=== PATIENT | female | born 1960 | race American Indian/Alaskan Native ===

== ENCOUNTER 2019-08-01 09:46 | Emergency (ER) | payer OTHER ==
--- NOTE | 2019-08-01 10:35 | Emergency Department Report ---
Chief Complaint: Urogenital-Female Stated Complaint: FREQUENT URINATION/POSS UTI Time Seen by Provider: 08/01/19 10:28 - HPI History of Present Illness: 59 y/o female comes in for urinary frequent no abd pain. No dysuria no fever. - ROS Review of Systems: urinary frequency no dysuria no abd pain. no fever - Exam Physical Exam: AxO times three NAD Ambulating normal MSE screening note: Focused history and physical exam performed. Due to findings the following was ordered: increase fluid follow up with her PCP ED Disposition for MSE Clinical Impression: Urinary frequency Disposition: Z- MED SCREENING EXAM-LEFT Is pt being admited?: No Does the pt Need Aspirin: No Condition: Stable Referrals: Primary, Care Provider [Other] - 3-5 Days
[2019-08-01 10:48] VITALS: BP 145/67
== END 2019-08-01 10:47 | disposition left against medical advice (07) ==
LOC: ED 09:46
DX: R35.0 Frequency of micturition (principal)
CPT/HCPCS: 99281